=== PATIENT | female | born 1960 | race Two or more races ===

== ENCOUNTER 2021-05-18 07:59 | Emergency (ER) | payer SELFPAY ==
[~2021-05-18] VITALS: Ht 152.4 cm; Wt 97.7 kg
[2021-05-18] MEDS ORDERED: DEXAMETHASONE 4 MG TABLET PO ONE (08:30)
[2021-05-18 09:06] LABS: BASO % 1 % (0-3); EOS # 0.1 x10^3/uL (0.0-0.7); EOS % 2 % (0-3); HEMATOCRIT 42.8 % (36.0-47.0); HEMOGLOBIN 14.3 g/dL (12.0-15.5); LYMPH # 2.7 x10^3/uL (1.0-4.8); LYMPH % 39 % (24-48); MEAN CORPUSCULAR HEMOGLOBIN 28 pg (25-35); MEAN CORPUSCULAR HGB CONC 33 g/dL (31-37); MEAN CORPUSCULAR VOLUME 85 fL (79-100); MONO # 0.6 x10^3/uL (0.0-1.1); MONO % 8 % (0-9); NEUT # 3.5 x10^3/uL (1.8-7.7); NEUT % 50 % (31-73); PLATELET COUNT 336 x10^3/uL (140-400); RED BLOOD COUNT 5.02 x10^6/uL (3.50-5.40); RED CELL DISTRIBUTION WIDTH 13.9 % (11.5-14.5)
--- NOTE | 2021-05-18 09:13 | RAD ---
AP chest. HISTORY: Chest pain AP view was taken of the chest. There is linear scarring or atelectasis along the left heart border. Lungs are otherwise clear. Heart is normal in size. There is no effusion. IMPRESSION: 1. Left base linear scarring or atelectasis without other infiltrates. Electronically signed by: Zan Granger MD (05/18/2021 9:11 AM) [id number]
[2021-05-18 09:14] LABS: BARBITURATES NEG (NEG); BENZODIAZEPINES NEG (NEG); CANNABINOIDS NEG (NEG); COCAINE NEG (NEG); METHADONE NEG (NEG); OPIATES NEG (NEG); PHENCYCLIDINE NEG (NEG)
[2021-05-18 09:18] LABS: AMPHETAMINE/METHAMPHETAMINE NEG (NEG)
[2021-05-18 09:23] LABS: CALCIUM 8.7 mg/dL (8.5-10.1); CREATININE 0.9 mg/dL (0.6-1.0); GFR 64.3; POTASSIUM 3.5 mmol/L (3.5-5.1)
[2021-05-18 09:29] LABS: ALBUMIN 3.9 g/dL (3.4-5.0); MAGNESIUM 2.2 mg/dL (1.8-2.4); TOTAL BILIRUBIN 0.4 mg/dL (0.2-1.0); TOTAL PROTEIN 7.7 g/dL (6.4-8.2)
--- NOTE | 2021-05-18 09:50 | PHYS DOC ---
Past Medical History Past Surgical History: No Surgical History Smoking Status: Never Smoker Alcohol Use: None General Adult EDM: Chief Complaint: SORE THROAT HPI: HPI: 60-year-old female past medical history of GERD, [id number] diabetes and hypertension presents to the ED with her , (patient consents to his/her/their knowledge and involvement in pts' medical care), with complaints of " multiple times" of pain in the left arm that moves to her chest, face, jaw and shoulder blade over the past 10 days. Patient states she saw Dr. Linnea Galvez 9 days ago was told she was at risk for heart attack and is needing additional studies. Is supposed to follow-up with him on Thursday for a referral. States chest pain "is burning," started today at 730 this morning, is reproducible/painful to the touch and it hurts when she leans forward. Reports associated shortness of breath. Is vaccinated for Covid and is never had Covid infection. Denies any tobacco, alcohol or cocaine abuse. No personal or family history of AAA, AAD, CTD (ehlos danlos or marfans), cardiac arrhythmias (need for AICD), CAD, sudden or unexplainable (under 50 years of age or with exertion), or clotting disorders. Takes Nexium, lisinopril and Metformin. 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 Patient was initially triaged as a sore throat but this was not her chief complaint. Review of Systems: Review of Systems: Constitutional: Denies fever or chills. [] Eyes: Denies change in visual acuity. [] HENT: Denies nasal congestion or sore throat. [] Respiratory: Denies cough or hemoptysis Cardiovascular: Denies syncope or edema. [] GI: Denies abdominal pain, nausea, vomiting, bloody stools or diarrhea. [] : Denies dysuria or vaginal bleeding Musculoskeletal: Denies back pain or joint deformity [] Integument: Denies rash or diaphoresis Neurologic: Denies headache, focal weakness or sensory changes. [] Endocrine: Denies polyuria or polydipsia. [] Lymphatic: Denies swollen glands. [] Psychiatric: Denies depression or anxiety. [] Heart Score: C/O Chest Pain: Yes HEART Score for Chest Pain: HEART Score for Chest Pain Response (Comments) Value History Slighlty/Non-Suspicious 0 ECG Nonspecific Repolarizatio 1 Age >45 - < 65 1 Risk Factors 1 or 2 Risk Factors 1 Troponin < Normal Limit 0 Total 3 Risk Factors: Risk Factors: DM, Current or recent (<one month) smoker, HTN, HLP, family history of CAD, obesity. Risk Scores: Score 0 - 3: 2.5% MACE over next 6 weeks - Discharge Home Score 4 - 6: 20.3% MACE over next 6 weeks - Admit for Clinical Observation Score 7 - 10: 72.7% MACE over next 6 weeks - Early Invasive Strategies Current Medications: Current Medications Medications (Trade) Dose Ordered Sig/Karri Start Time Stop Time Status Last Admin Dose Admin Dexamethasone (Decadron) 10 mg 1X ONCE 05/18/21 08:30 05/18/21 08:31 DC 05/18/21 08:30 10 MG Allergies: Allergies: Allergies Coded Allergies Type Severity Reaction Last Updated Verified No Known Drug Allergies 05/18/21 No Physical Exam: PE: Constitutional: Well developed, well nourished, no acute distress, non-toxic appearance. HENT: Normocephalic, atraumatic, Eyes: EOMI, conjunctiva normal, no discharge. Neck: Normal range of motion, supple, Cardiovascular: S1/2 present, regular rhythm Lungs & Thorax: Speaking in full sentences, bilateral equal chest rise, no tachypnea or increased work of breathing Abdomen: soft, no tenderness, Skin: Warm, dry, no erythema, no rash. [] Back: No tenderness, no CVA tenderness. [] Extremities: No tenderness, no cyanosis, no unilateral lower extremity edema Neurologic: Alert and oriented X 3, normal motor function, normal sensory function, no focal deficits noted. [] Psychologic: Affect normal, judgement normal, mood normal. [] Current Patient Data: Labs: Laboratory Tests Test 05/18/21 08:40 05/18/21 08:45 Group A Streptococcus Rapid Negative (NEGATIVE) White Blood Count 7.0 x10^3/uL (4.0-11.0) Red Blood Count 5.02 x10^6/uL (3.50-5.40) Hemoglobin 14.3 g/dL (12.0-15.5) Hematocrit 42.8 % (36.0-47.0) Mean Corpuscular Volume 85 fL (79-100) Mean Corpuscular Hemoglobin 28 pg (25-35) Mean Corpuscular Hemoglobin Concent 33 g/dL (31-37) Red Cell Distribution Width 13.9 % (11.5-14.5) Platelet Count 336 x10^3/uL (140-400) Neutrophils (%) (Auto) 50 % (31-73) Lymphocytes (%) (Auto) 39 % (24-48) Monocytes (%) (Auto) 8 % (0-9) Eosinophils (%) (Auto) 2 % (0-3) Basophils (%) (Auto) 1 % (0-3) Neutrophils # (Auto) 3.5 x10^3/uL (1.8-7.7) Lymphocytes # (Auto) 2.7 x10^3/uL (1.0-4.8) Monocytes # (Auto) 0.6 x10^3/uL (0.0-1.1) Eosinophils # (Auto) 0.1 x10^3/uL (0.0-0.7) Basophils # (Auto) 0.0 x10^3/uL (0.0-0.2) Sodium Level 139 mmol/L (136-145) Potassium Level 3.5 mmol/L (3.5-5.1) Chloride Level 102 mmol/L (98-107) Carbon Dioxide Level 31 mmol/L (21-32) Anion Gap 6 (6-14) Blood Urea Nitrogen 14 mg/dL (7-20) Creatinine 0.9 mg/dL (0.6-1.0) Estimated GFR (Cockcroft-Gault) 64.3 BUN/Creatinine Ratio 16 (6-20) Glucose Level 115 mg/dL (70-99) H Calcium Level 8.7 mg/dL (8.5-10.1) Magnesium Level 2.2 mg/dL (1.8-2.4) Total Bilirubin 0.4 mg/dL (0.2-1.0) Aspartate Amino Transferase (AST) 33 U/L (15-37) Alanine Aminotransferase (ALT) 74 U/L (14-59) H Alkaline Phosphatase 62 U/L (46-116) Total Protein 7.7 g/dL (6.4-8.2) Albumin 3.9 g/dL (3.4-5.0) Albumin/Globulin Ratio 1.0 (1.0-1.7) Lipase 263 U/L (73-393) Urine Opiates Screen Neg (NEG) Urine Methadone Screen Neg (NEG) Urine Barbiturates Neg (NEG) Urine Phencyclidine Screen Neg (NEG) Urine Amphetamine/Methamphetamine Neg (NEG) Urine Benzodiazepines Screen Neg (NEG) Urine Cocaine Screen Neg (NEG) Urine Cannabinoids Screen Neg (NEG) Urine Ethyl Alcohol Neg (NEG) Laboratory Tests 05/18/21 08:45 Laboratory Tests 05/18/21 08:45 Vital Signs: Vital Signs Date Time Temp Pulse Resp B/P (MAP) Pulse Ox O2 Delivery O2 Flow Rate FiO2 05/18/21 08:11 97.6 86 20 163/93 (116) 96 Room Air 97.6 EKG: EKG: Sinus 94 bpm, no axis deviation, normal intervals, T wave inversion lead V3, no ST elevation or ST depression, Radiology/Procedures: Radiology/Procedures: IMAGING REPORT Signed PATIENT: ZAK EARLYCOUNT: [id number] : 1960 LOCATION: ER AGE: 60 SEX: F EXAM STATUS: REG ER ORD. PHYSICIAN: ORTIZ SHEEHAN DO REASON: cp PROCEDURE: PORTABLE CHEST 1V AP chest. HISTORY: Chest pain AP view was taken of the chest. There is linear scarring or atelectasis along the left heart border. Lungs are otherwise clear. Heart is normal in size. There is no effusion. IMPRESSION: 1. Left base linear scarring or atelectasis without other infiltrates. Electronically signed by: Vinny Granger MD (05/18/2021 9:11 AM) [id number] DICTATED and SIGNED BY: VINNY GRANGER MD DATE: 05/18/21 [id number] 0 Course & Med Decision Making: Course & Med Decision Making Pertinent Labs and Imaging studies reviewed. (See chart for details) For atypical chest pain and low risk individual, 2 troponin high-sensitivity are negative. Chest x-ray unremarkable. Patient is hemodynamically stable with incidental finding of elevated ALT. Reevaluation patient is asymptomatic. Will discharge home with strict ED return precautions were given for syncope, typical chest pain including pressure tightness or squeezing, shortness of breath or neurologic deficit. Encouraged urgent outpatient follow-up with PMD routine care and cardiology for nonemergent chest pain evaluation. Life-threatening processes were considered but are low suspicion at this time, given history, physical exam and ED workup. Pt was educated on all prescription medications and adverse effects. All patient's questions were answered and pt was stable at time of discharge. Life/limb-threatening differential includes but is not limited to, acute myocardial infarction, aortic dissection, congestive heart failure, esophageal injury including rupture, surgical abdomen, arrhythmia, cardiomyopathy, myocarditis, pericarditis, peptic ulcer disease, pneumomediastinum, pneumonia, pneumothorax, pulmonary embolus, unstable angina, rib fracture, contusion, pericardial tamponade or effusion, traumatic injury including mediastinal hemorrhage or hematoma, or pulmonary contusion. I have spoken with the patient and/or caregivers. I explained the patient's condition, diagnoses and treatment plan based on the information available to me at this time. I have answered the patient and/or caregiver's questions and addressed any concerns. The patient and/or caregivers have a good understanding of patient's diagnosis, condition and treatment plan as can be expected at this point. Vital signs have been stable. Patient's condition is stable and appropriate for discharge from the emergency department. Patient will pursue further outpatient evaluation with primary care physician or other designated or consulting physician as outlined in the discharge instructions. The patient and/or caregivers are agreeable to this plan of care and follow-up instructions have been explained in detail. The patient and/or caregivers have received these instructions in written form and have expressed an understanding of the discharge instructions. The patient and/or caregivers are aware that any significant change of condition or worsening of symptoms should prompt immediate return to this or the closest emergency department or call to 911. Pieter Disclaimer: Pieter Disclaimer: This electronic medical record was generated, in whole or in part, using a voice recognition dictation system. Departure Departure Impression: Primary Impression: Left upper arm pain Additional Impression: Atypical chest pain Disposition: HOME / SELF CARE / HOMELESS Condition: STABLE Referrals: NO PCP (PCP) Seguimiento con yañez mdico de atencin primaria Dr. Micah Galvez en la prxima semana para reevaluacin Patient Instructions: Chest Pain (Nonspecific) Additional Instructions: SEGUIMIENTO CON CARDIOLOGA: PARA EL MANEJO DEFINITIVO del dolor torcico no emergente [facility] [place] [address] [address] [place]: INSTRUCCIONES GENERALES DE ALAN DEL DEPARTAMENTO DE EMERGENCIA [place] por venir al Departamento de Emergencias (ED) de [facility] y confiando en nosotros con yañez cuidado. Confiamos en que tuviste christiano experiencia positiva en nuestra Emergencia Departamento. Si desea hablar con la gerencia del departamento, puede llamar al Director al [phone]. SON INSTRUCCIONES DE SEGUIMIENTO SON LAS SIGUIENTES: 1. Tiene un mdico privado? Si no tiene un mdico privado, por favor pida geo lista de recursos de mdicos o clnicas que pueden ayudarlo con la atencin de seguimiento. 2. El Mdico de Urgencias randall interpretado son radiografas. El especialista en son X tambin revisarlos. Si hay un cambio en los hallazgos, se le notificar en 48 horas cuando al todo posible. 3. Se randall realizado christiano prueba de laboratorio o cultivo, se revisarn son resultados y se le notificado si necesita un cambio en el tratamiento. INSTRUCCIONES E INFORMACIN ADICIONALES: 1. Yañez atencin hoy randall sido supervisada por un mdico especialmente capacitado en emergencias cuidado. Muchos problemas requieren ms de christiano evaluacin para un diagnstico completo y tratamiento. Le recomendamos que programe yañez wade de seguimiento segn lo recomendado para garantizar el tratamiento completo de yañez enfermedad o lesin. Si no puede obtener un seguimiento atencin y contina teniendo un problema, o si yañez condicin empeora, le recomendamos que volver al servicio de urgencias. 2. No podemos determinar yañez condicin de forma rodriguez por [place] ni podemos haley buenos consejos mdicos por [place]. Por estas razones de seguridad, si llama para recibir atencin mdica consejo, le pediremos que venga al servicio de urgencias para christiano evaluacin adicional. 3. Si tiene alguna pregunta con respecto a estas instrucciones de alan, llame al ED al [phone]. INFORMACIN DE SEGURIDAD: En inters de la seguridad, el bienestar y la prevencin de lesiones; te animamos a que lleves tu cinturn de seguridad, si fuma; fumando bastante, y alentamos a la danica a usar un jonas protector para andar en bicicleta y otros eventos deportivos que presentan un mayor riesgo de lesiones en la cash. SI SON SNTOMAS EMPEORAN O SE DESARROLLAN NUEVOS SNTOMAS, O SI TIENE PREOCUPACIONES SOBRE YAÑEZ CONDICIN; O SI YAÑEZ CONDICIN EMPEORA MIENTRAS ESPERA YAÑEZ WADE DE SEGUIMIENTO; CUALQUIERA COMUNQUESE CON YAÑEZ MDICO DE ATENCIN PRIMARIA, EL MDICO CUYO NOMBRE Y NMERO LE DIERON, O REGRESE AL ED INMEDIATAMENTE. ORTIZ SHEEHAN DO May 18, 2021 09:50
[2021-05-18 12:14] VITALS: BP 155/86
--- NOTE | 2021-05-18 16:07 | EKG ---
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
== END 2021-05-18 13:40 | disposition home or self-care (01) ==
LOC: ER 07:59
DX: M79.622 Pain in left upper arm (principal); R07.89 Other chest pain; M25.512 Pain in left shoulder; R51.9 Headache, unspecified; K21.9 Gastro-esophageal reflux disease without esophagitis; I10 Essential (primary) hypertension; E11.9 Type 2 diabetes mellitus without complications
CPT/HCPCS: 36415; 71045; 80053; 80307; 83690; 83735; 83880; 84484; 85025; 87070; 87880; 93005; 99285-25